=== PATIENT | female | born 1990 | race Two or more races ===

== ENCOUNTER → 2017-10-28 | Emergency (ER) | payer OTHER ==
[~2017-10-28] VITALS: Ht 165.1 cm; Wt 72.6 kg
[~2017-10-28] MED LIST: KETO10TA2 PO; SKELAXIN800 MG PO; ZANTAC15 MG/ML
== END | disposition home or self-care (01) ==
LOC: ER 02:43
DX: M25.561 Pain in right knee (principal)

== ENCOUNTER 2022-04-21 04:38 | Emergency (ER) | payer OTHER ==
[~2022-04-21] VITALS: Ht 167.6 cm; Wt 90.7 kg
[2022-04-21] MEDS ORDERED: KETO10TA2 PO ×2 (06:34)
[2022-04-21] MEDS ORDERED: CEPHALEXIN500 MG PO (06:34)
== END 2022-04-21 06:44 ==
LOC: ER 04:38
DX: N75.1 Abscess of Bartholin's gland (principal)